=== PATIENT | female | born 1965 | race Caucasian/White ===

== ENCOUNTER 2021-07-24 19:47 | Emergency (ER) | payer SELFPAY ==
[~2021-07-24] VITALS: Ht 154.9 cm; Wt 84.4 kg
[~2021-07-24 19:47] MED LIST: IBUP-1842 PO; LEVO-315 PO; TAMS0.4C96 PO
[2021-07-24 20:31] VITALS: BP 149/61
--- NOTE | 2021-07-24 20:35 | NUR ---
PT IN RESTTOOM FOR URINE COLLECTION.
--- NOTE | 2021-07-24 20:40 | NUR ---
PT SENT TO LOBBY.
--- NOTE | 2021-07-24 21:10 | NUR ---
seen and examined by kings with orders , carried out.
[2021-07-24 21:11] LABS: APPEARANCE,URINE CLEAR (CLEAR); BILIRUBIN,URINE NEGATIVE (NEGATIVE); BLOOD, URINE NEGATIVE (NEGATIVE); COLOR,URINE YELLOW (YELLOW); LEUKOCYTE ESTERASE ,URINE TRACE (NEGATIVE); NITRITE, URINE NEGATIVE (NEGATIVE); PH,URINE 6.5 (5.0-9.0); UGLUCOSE NEGATIVE (NEGATIVE)
[2021-07-24 21:14] LABS: RBC,URINE 0 /HPF (0-5)
[2021-07-24] MEDS ORDERED: KETOROLAC 15 MG/ML VIAL IVP ONE (21:15)
--- NOTE | 2021-07-24 21:18 | NUR ---
PT TAKEN TO BED 6. PLACED IN GOWN
--- NOTE | 2021-07-24 21:20 | NUR ---
medicated as per Ermds oder, tolerated well.
--- NOTE | 2021-07-24 23:35 | NUR ---
back from Ct via [facility] with tech.
[2021-07-24 23:50] LABS: ANION GAP 14.3 (8-16); CARBON DIOXIDE 24.4 mmol/L (21-32); POTASSIUM 3.7 mmol/L (3.5-5.1)
--- NOTE | 2021-07-25 00:05 | NUR ---
DAUGHTER: MIL [phone] CALLBACK IF UPDATE ON PT
[2021-07-25 00:26] LABS: BASOPHILS # (AUTO) 0.1 K/uL (0.00-0.22); BASOPHILS % (AUTO) 0.7 % (0.0-2.0); EOSINOPHILS # (AUTO) 0.2 K/uL (0-0.4); EOSINOPHILS % (AUTO) 1.9 % (0.0-4.0); HEMATOCRIT 37.8 % (36-48); HEMOGLOBIN 12.5 g/dL (12.0-16.0); LYMPHOCYTES # (AUTO) 3.5 K/uL (2.5-16.5); LYMPHOCYTES % (AUTO) 40.8 % (20.5-51.1); MEAN CORPUSCULAR HEMOGLOBIN 29 pg (27-31); MEAN CORPUSCULAR HGB CONC 33 g/dL (33-37); MEAN CORPUSCULAR VOLUME 86.2 fL (80-94); MONOCYTES # (AUTO) 0.4 K/uL (0.8-1.0); MONOCYTES % (AUTO) 4.4 % (1.7-9.3); NEUTROPHILS # (AUTO) 4.4 K/uL (1.8-7.7); NEUTROPHILS % (AUTO) 52.2 % (42.2-75.2); PLATELET COUNT (AUTO) 433 K/uL (140-450); RED BLOOD CELL COUNT(AUTO) 4.38 MIL/uL (4.20-5.40)
[2021-07-25 00:30] LABS: WHITE BLOOD COUNT (AUTO) 8.5 K/uL (4.8-10.8)
[2021-07-25] MEDS ORDERED: CIPR500T4 PO (01:03)
[2021-07-25] MEDS ORDERED: IBUP-2213 PO (01:03)
--- NOTE | 2021-07-25 01:09 | NUR ---
PATIENT CLEARED FOR DISHCARGE AT THIS TIME. ADVISED TO FOLLOW UP WITH PCP AND RETURN OF CONDITION WORSENS. NO TOHER COMPLAINTS OR CONCERNS FOLLWOING DISCHARGE TEACHING. RX SENT TO PATIENT PHARMACY
[2021-07-25 01:10] VITALS: BP 137/63
== END 2021-07-25 00:05 | disposition home or self-care (01) ==
LOC: MED 19:47
DX: R10.9 Unspecified abdominal pain (principal); R68.83 Chills (without fever); R53.83 Other fatigue; Z90.49 Acquired absence of other specified parts of digestive tract; Z98.890 Other specified postprocedural states; Z88.0 Allergy status to penicillin; Z79.899 Other long term (current) drug therapy
CPT/HCPCS: 36415; 74176; 80048; 81001; 81025; 85025; 87086; 96374; 99284; J1885